=== PATIENT | female | born 1970 | race Caucasian/White ===

== ENCOUNTER → 2018-06-03 12:54 | Outpatient (CLI) | payer OTHER, SELFPAY ==
[2018-04-29 09:42] VITALS: BMI 19.7
--- NOTE | 2018-06-03 13:00 | BI_ITS ---
MAMMOGRAPHY - BILATERAL SCREENING 3-D BARBARA SYNTHESIS REASON FOR EXAM: Female, 48 years old. Bilateral Screening 3-D tomosynthesis PERTINENT HISTORY: Family history of breast cancer in sister. History of Hodgkin's lymphoma in 25 and then again in 30s.. TECHNIQUE: 2-D mammograms and 3-D Barbara synthesis of the breast (s) were performed. CAD was performed. COMPARISON: August 02, 2016, July 20, 2015 FINDINGS: The breast composition is heterogeneously dense that can obscure small breast masses. Scattered benign calcifications are seen. No dense spiculated masses or suspicious microcalcifications are identified. No architectural distortion is identified. There is no skin thickening or retraction. There has been no significant change since the prior study. BI/SCREEN MAMM (CAD) W/BARBARA BILAT IMPRESSION: No mammographic signs of malignancy. Routine yearly mammograms recommended. ASSESSMENT CATEGORY: BIRADS Category 1: Negative. A letter regarding these results will be sent to the patient by the facility within 30 days. FOLLOW UP RECOMMENDATION: Yearly follow up mammogram recommended. (A) Approximately 10% of breast cancers are not detected by mammography. A normal mammogram should not delay biopsy of a clinically suspicious abnormality. Electronically Signed: Liu Patton MD at 13:42 EDT , Service support ,
== END ==
PROVIDERS: Family Provider Family Medicine; PCP Family Medicine; Visit Provider Obstetrics & Gynecology
DX: Z12.31 Encounter for screening mammogram for malignant neoplasm of breast (principal)
CPT/HCPCS: 77063; 77067

== ENCOUNTER → 2019-07-21 | Outpatient (CLI) | payer OTHER, SELFPAY ==
[2019-07-21 10:11] VITALS: BMI 19.7
[2019-07-24 15:46] LABS: HPV APTIMA, High Risk Negative (Negative)
== END | disposition home or self-care (01) ==
PROVIDERS: PCP Student in an Organized Health Care Education/Training Program; Visit Provider Nurse Practitioner Women's Health
DX: Z12.4 Encounter for screening for malignant neoplasm of cervix (principal)
CPT/HCPCS: 87624; 88175; G0145